=== PATIENT | female | born 1960 | race Caucasian/White ===

== ENCOUNTER 2018-06-11 09:09 | Emergency (ER) | payer OTHER | END 2018-06-11 10:52 | disposition home or self-care (01) | LOC: ERS 09:09 | DX: H33.21 Serous retinal detachment, right eye (principal); F41.9 Anxiety disorder, unspecified; F32.9 Major depressive disorder, single episode, unspecified; I10 Essential (primary) hypertension; Z79.899 Other long term (current) drug therapy ==